=== PATIENT | female | born 1970 | race Caucasian/White ===

== ENCOUNTER → 2016-10-04 | Outpatient (REF) | payer OTHER ==
[2016-10-04 14:16] LABS: BASO % 0.6 % (0.0-1.0); EOS # 0.1 K/mm3 (0.0-0.50); EOS % 2.7 % (0.0-3.0); LARGE UNSTAINED CELL # 0.1 K/mm3 (0.0-0.4); LARGE UNSTAINED CELL % 1.4 % (0.0-4.0); LYMPH # 1.1 K/mm3 (1.5-4.5); LYMPH % 23.8 % (24.0-44.0); MEAN CORPUSCULAR HEMOGLOBIN 27.6 pg (27.0-33.0); MEAN CORPUSCULAR HGB CONC 33.6 g/dl (32.0-36.5); MEAN CORPUSCULAR VOLUME 82.1 fl (80.0-96.0); MONO # 0.2 K/mm3 (0.0-0.8); MONO % 4.3 % (0.0-5.0); NEUTROPHILS # 3.2 K/mm3 (1.8-7.7); NEUTROPHILS % 67.1 % (36.0-66.0); PLATELET COUNT, AUTOMATED 304 k/mm3 (150-450); RED CELL DISTRIBUTION WIDTH 14.3 % (11.5-14.5); WHITE BLOOD COUNT 4.8 K/mm3 (4.0-10.0)
[2016-10-04 14:43] LABS: ERYTHROCYTE SEDIMENTATION RATE 12 mm/hr (0-20)
[2016-10-04 14:50] LABS: ALBUMIN/GLOBULIN RATIO 1.29 (1.00-1.93); ALKALINE PHOSPHATASE 138 U/L (45-117); ALT/SGPT 25 U/L (12-78); ANION GAP 5 MEQ/L (8-16); AST/SGOT 17 U/L (15-37); BILIRUBIN,TOTAL 0.8 MG/DL (0.2-1.0); BLOOD UREA NITROGEN 13 MG/DL (7-18); CARBON DIOXIDE LEVEL 31 MEQ/L (21-32); CHLORIDE LEVEL 106 MEQ/L (98-107); CREATININE FOR GFR 0.81 MG/DL (0.55-1.02); GLOMERULAR FILTRATION RATE > 60.0 (>58); GLUCOSE, FASTING 82 MG/DL (70-105); SODIUM LEVEL 142 MEQ/L (136-145); TOTAL PROTEIN 7.1 GM/DL (6.4-8.2)
[2016-10-04 15:31] LABS: FOLATE 9.7 NG/ML (>5.4); VITAMIN B12 LEVEL 294 PG/ML (247-911)
== END ==
LOC: M LABNEURO 10:33
PROVIDERS: ATTEND Psychiatry & Neurology Neurology
DX: R51 Headache (principal); Z86.73 Personal history of transient ischemic attack (TIA), and cerebral infarction without residual deficits

== ENCOUNTER → 2016-10-04 | Outpatient (REF) | payer OTHER ==
[2016-10-04 14:44] LABS: ALBUMIN/GLOBULIN RATIO 1.43 (1.00-1.93); ALKALINE PHOSPHATASE 123 U/L (45-117); ALT/SGPT 23 U/L (12-78); ANION GAP 8 MEQ/L (8-16); AST/SGOT 15 U/L (15-37); BILIRUBIN,TOTAL 0.8 MG/DL (0.2-1.0); BLOOD UREA NITROGEN 13 MG/DL (7-18); CALCIUM LEVEL 8.9 MG/DL (8.5-10.1); CARBON DIOXIDE LEVEL 29 MEQ/L (21-32); CHLORIDE LEVEL 107 MEQ/L (98-107); CHOLESTEROL LEVEL 210 MG/DL (<200); CREATININE FOR GFR 0.68 MG/DL (0.55-1.02); FREE T4 1.01 NG/DL (0.76-1.46); GLOMERULAR FILTRATION RATE > 60.0 (>58); GLUCOSE, FASTING 86 MG/DL (70-105); SODIUM LEVEL 144 MEQ/L (136-145); TOTAL PROTEIN 6.8 GM/DL (6.4-8.2); TRIGLYCERIDES LEVEL 90 MG/DL (<150)
== END ==
LOC: M LABNEURO 10:30
PROVIDERS: ATTEND Nurse Practitioner Family
DX: E03.9 Hypothyroidism, unspecified (principal); I10 Essential (primary) hypertension; E78.00 Pure hypercholesterolemia, unspecified

== ENCOUNTER 2018-06-29 09:38 | Inpatient (IN) | payer OTHER ==
[~2018-06-29] VITALS: Ht 162.6 cm; Wt 102.8 kg
[2018-06-29] MEDS ORDERED: LISI10TA4 PO (10:10)
[2018-06-29] MEDS ORDERED: VITA500045 PO (10:10)
[2018-06-29] MEDS ORDERED: PRAV40TA2 PO (10:10)
[2018-06-29] MEDS ORDERED: LEVO125T4 PO (10:10)
[2018-06-29 10:32] LABS: HEMATOCRIT 43.3 % (36.0-47.0); HEMOGLOBIN 13.8 g/dl (12.0-15.5); MEAN CORPUSCULAR HEMOGLOBIN 26.6 pg (27.0-33.0); MEAN CORPUSCULAR HGB CONC 31.9 g/dl (32.0-36.5); MEAN CORPUSCULAR VOLUME 83.6 fl (80.0-96.0); PLATELET COUNT, AUTOMATED 325 10^3/uL (150-450); RED BLOOD COUNT 5.18 10^6/uL (4.00-5.40); WHITE BLOOD COUNT 6.3 10^3/uL (4.0-10.0)
[2018-06-29 10:58] LABS: AMPHETAMINES LEVEL URINE NEGATIVE (NEGATIVE); BARBITURATES URINE NEGATIVE (NEGATIVE); BENZODIAZEPINES URINE NEGATIVE (NEGATIVE); CANNABINOIDS URINE NEGATIVE (NEGATIVE); COCAINE METABOLITE URINE NEGATIVE (NEGATIVE); HCG, SERUM QUALITATIVE NEGATIVE (NEGATIVE); METHADONE URINE NEGATIVE (NEGATIVE); OPIATES URINE NEGATIVE (NEGATIVE); PHENCYCLIDINE URINE NEGATIVE (NEGATIVE)
[2018-06-29 11:09] LABS: ACETAMINOPHEN LEVEL < 2.0 UG/ML (10.0-30.0); ALBUMIN 4.1 GM/DL (3.2-5.2); ALT/SGPT 42 U/L (12-78); BILIRUBIN,DIRECT 0.2 MG/DL (0.0-0.2); BILIRUBIN,TOTAL 0.7 MG/DL (0.2-1.0); BLOOD UREA NITROGEN 15 MG/DL (7-18); CALCIUM LEVEL 9.3 MG/DL (8.5-10.1); CARBON DIOXIDE LEVEL 30 MEQ/L (21-32); CHLORIDE LEVEL 106 MEQ/L (98-107); CREATININE FOR GFR 0.79 MG/DL (0.55-1.30); ETHYL ALCOHOL (ETHANOL) < 0.003 % (0.000-0.010); GLOMERULAR FILTRATION RATE > 60.0 (>58); GLUCOSE, FASTING 111 MG/DL (70-100); POTASSIUM SERUM 4.4 MEQ/L (3.5-5.1); SALICYLATE LEVEL < 1.7 MG/DL (5.0-30.0); SODIUM LEVEL 142 MEQ/L (136-145); TOTAL PROTEIN 6.9 GM/DL (6.4-8.2)
[2018-06-29] MEDS ORDERED: MAALOX 30 ML SUSP *UDC PO PRN (13:30)
[2018-06-29] MEDS ORDERED: MOM 30ML SUSPENSION UDC PO PRN (13:30)
[2018-06-29] MEDS ORDERED: traZODone 50 MG TAB PO PRN (13:30)
[2018-06-29 16:01] LABS: FREE T4 0.86 NG/DL (0.76-1.46)
--- NOTE | 2018-06-29 16:01 | HPE ---
DATE OF ADMISSION: 06/29/2018 PRIMARY CARE PROVIDER: Loretta Zapien HISTORY OF PRESENT ILLNESS: The patient is a 48-year-old female with a past medical history significant for depression, hypertension, dyslipidemia, hypothyroidism, left eye aneurysm, migraine headaches, who was admitted to inpatient mental health unit ([facility]) for depressive symptoms. During encounter, patient was in a very depressed mood. Patient was very tearful; however, patient denies any acute complaints. Patient's medical history reviewed with the patient. PAST MEDICAL HISTORY: 1. Hypertension. 2. Depression. 3. Hypothyroidism. 4. Dyslipidemia. 5. Migraine headaches. 6. Left eye aneurysm. PAST SURGICAL HISTORY: 1. Gastric bypass in 2003. 2. Tonsillectomy. 3. Hysterectomy. ALLERGIES: SULFA (throat swelling and rash). MORPHINE (projectile vomiting and hives). Latex. SOCIAL HISTORY: Denies smoking. Drinks wine very rarely. Denied recreational drug use. REVIEW OF SYSTEMS: GENERAL: No fever. No chills. HEENT: Patient complained about mild headache from excessive crying. No vision change. No auditory changes. CARDIOVASCULAR: No chest pain. No palpitations. RESPIRATORY: Denies any shortness of breath. No cough. No sputum production. GASTROINTESTINAL: No abdominal pain. No nausea. No vomiting. No diarrhea. MUSCULOSKELETAL: Denied muscle pain or joint pain. NEUROLOGIC: Denied any numbness or tingling. PHYSICAL EXAMINATION: VITAL SIGNS: Temperature 98, pulse 80, respiratory rate 20, blood pressure 145/68, pulse oximetry 97% in room air. GENERAL: Tearful. Depressed. Alert and awake. HEENT: Normocephalic, atraumatic. Extraocular motor grossly intact. CARDIOVASCULAR: Positive S1, S2, regular rate. Positive systolic murmur, best heard in the second intercostal space. LUNGS: Clear to auscultation bilaterally. ABDOMEN: Soft, nontender. Bowel sounds present. EXTREMITIES: No edema. No sign of cyanosis. NEUROLOGIC: Sensation to fine touch grossly intact. Muscle strength 5/5. LABORATORY DATA: WBC is 6.3, hemoglobin 13.8, hematocrit 43.3, platelet count is 325. Sodium is 142, potassium 4.4, chloride 106, carbon dioxide 30, BUN 15, creatinine 0.79, GFR greater than 60, fasting glucose 111, calcium 9.3. Total bilirubin 0.7, direct bilirubin 0.2, AST 24, ALT 42, alkaline phosphatase 107, total protein 6.9, albumin 4.1, TSH is 7.07. SCG is negative. Alcohol level is negative. ASSESSMENT AND PLAN: 1. Depression. Patient is admitted to [facility]. Refer the condition management per the psychiatrist. 2. Hypothyroidism. Patient is on Synthroid. According to patient, patient had recent thyroid medication adjustment in December 2017. Patient did have elevated thyroid-stimulating hormone (TSH). Will followup with free T4. Will adjust thyroid dose as needed. 3. Hypertension, on lisinopril. 4. Dyslipidemia, on pravastatin. 5. History of migraine headache. Previously patient was taking Topamax; however, patient says she has been off the Topamax for some time. Continue to monitor. 6. Cardiac murmur. Recommend outpatient followup. 7. Left eye aneurysm. Patient has routine followup in the outpatient setting. According to patient, her aneurysm has been stable. 8. Deep vein thrombosis (DVT) prophylaxis. Recommend increased ambulation.
[2018-06-29] MEDS: ACETAMINOPHEN TAB 650MG DOSE (2X325MG) PO PRN (20:59)
[2018-06-30] MEDS: LEVOTHYROXINE 125MCG TABLET (0.125MG) PO SCH (05:49)
[2018-06-30 06:47] VITALS: BP 139/81
[2018-06-30] MEDS: ACETAMINOPHEN TAB 650MG DOSE (2X325MG) PO PRN ×2 (08:12→21:30)
[2018-06-30] MEDS: VITAMIN D 50,000 UNITS CAPSULE (ERGOCALCIFEROL 1.25MG) PO SCH (08:12)
[2018-06-30] MEDS: PRAVASTATIN 20 MG TAB PO SCH (08:12)
[2018-06-30] MEDS: LISINOPRIL 10 MG TAB PO SCH (08:12)
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
[2018-06-30] MEDS ORDERED: hydrOXYzine 10 MG TAB PO PRN (16:15)
[2018-06-30] MEDS: SERTRALINE HCL 50 MG TAB PO SCH (17:42)
[2018-06-30 18:00] VITALS: BP 131/75
[2018-06-30] MEDS: MIRTAZAPINE 15 MG TAB PO SCH ×2 (21:18→21:29)
[2018-07-01] MEDS: LEVOTHYROXINE 125MCG TABLET (0.125MG) PO SCH (06:02)
[2018-07-01 06:40] VITALS: BP 123/67
[2018-07-01] MEDS ORDERED: SERTRALINE HCL 50 MG TAB PO SCH (09:00)
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
[2018-07-01] MEDS: PRAVASTATIN 20 MG TAB PO SCH (09:31)
[2018-07-01] MEDS: LISINOPRIL 10 MG TAB PO SCH (09:31)
[2018-07-01] MEDS: SERTRALINE HCL 50 MG TAB PO SCH (09:31)
[2018-07-01 18:14] VITALS: BP 129/74
[2018-07-02] MEDS: LEVOTHYROXINE 125MCG TABLET (0.125MG) PO SCH (06:19)
[2018-07-02 06:55] VITALS: BP 136/70
[2018-07-02] MEDS: SODIUM CHLORIDE NASAL 0.65% SPRAY BTL (OCEAN) PRN ×2 (08:33→21:37)
[2018-07-02] MEDS: SERTRALINE HCL 50 MG TAB PO SCH (08:33)
[2018-07-02] MEDS: LISINOPRIL 10 MG TAB PO SCH (08:33)
[2018-07-02] MEDS: PRAVASTATIN 20 MG TAB PO SCH (08:34)
[2018-07-02] MEDS: ACETAMINOPHEN TAB 650MG DOSE (2X325MG) PO PRN (08:34)
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
[2018-07-02] MEDS ORDERED: ALBUTEROL 90 MCG/ACT 8GM HFA INHALER INH PRN (11:45)
[2018-07-02] MEDS: AUGMENTIN 875 MG TAB PO SCH ×2 (11:57→21:37)
[2018-07-02] MEDS: CETIRIZINE (ZyrTEC) 10 MG TAB PO SCH (11:58)
[2018-07-02 12:16] LABS: HEMATOCRIT 41.3 % (36.0-47.0); HEMOGLOBIN 13.1 g/dl (12.0-15.5); MEAN CORPUSCULAR HEMOGLOBIN 26.1 pg (27.0-33.0); MEAN CORPUSCULAR HGB CONC 31.7 g/dl (32.0-36.5); MEAN CORPUSCULAR VOLUME 82.4 fl (80.0-96.0); PLATELET COUNT, AUTOMATED 345 10^3/uL (150-450); RED BLOOD COUNT 5.01 10^6/uL (4.00-5.40); WHITE BLOOD COUNT 7.8 10^3/uL (4.0-10.0)
[2018-07-02 12:40] LABS: BLOOD UREA NITROGEN 16 MG/DL (7-18); CALCIUM LEVEL 8.4 MG/DL (8.5-10.1); CARBON DIOXIDE LEVEL 30 MEQ/L (21-32); CHLORIDE LEVEL 107 MEQ/L (98-107); GLOMERULAR FILTRATION RATE > 60.0 (>58); GLUCOSE, FASTING 68 MG/DL (70-100); SODIUM LEVEL 142 MEQ/L (136-145)
--- NOTE | 2018-07-02 13:13 | IPN ---
DATE: 07/02/2018 SUBJECTIVE: Patient is seen and examined in the [facility]. According to the patient, the patient started having stuffy frontal sinus and maxillary sinus in the last 2-3 weeks. The patient noted to have yellowish drainage. The patient feels that the congestion has spread down to her upper chest. The patient thinks that she may have some yellowish sputum production now. Denies any fever or chills. Patient stated she has been having significant seasonal allergy history. Usually she will have very similar symptoms approximately twice a year. Her symptoms is not controlled or treated she will develop acute bronchitis. OBJECTIVE: VITAL SIGNS: Temperature 97.8, pulse 76, respirations 14, blood pressure 136/70. GENERAL: No signs of acute distress. Patient is alert and awake. HEENT: Tenderness to palpation of the frontal and maxillary sinuses. LUNGS: Clear to auscultation bilaterally. CARDIOVASCULAR: Positive S1, S2. Regular rate. Positive systolic murmur. ABDOMEN: Soft, nontender. Bowel sounds present. EXTREMITIES: No edema. LABORATORY DATA: WBC 7.8, hemoglobin 13.1, hematocrit 41.3, platelet count 345. ASSESSMENT/PLAN: 1. Acute sinusitis. Patient was started on Augmentin, a six day course. The patient will have as needed inhaler if she starts having increased difficulty breathing. Patient started on Zyrtec. 2. Hypertension. Blood pressure is in satisfactory range. Patient is on lisinopril. 3. Hypothyroidism, on Synthroid. 4. Depression. Patient is in the [facility], defer psychiatric management to the psychiatric team. 5. Migraines headaches, on Tylenol. 6. History of left eye aneurysm. Continue outpatient follow-up. 7. Cardiac murmur. Recommend outpatient follow-up. 8. Dyslipidemia, on pravastatin. 9. Deep vein thrombosis (DVT) prophylaxis. Encourage ambulation. MTDD
[2018-07-02] MEDS: BENZONATATE 100 MG CAP PO SCH ×2 (17:11→21:37)
[2018-07-02 17:29] VITALS: BP 142/89
[2018-07-02] MEDS: MIRTAZAPINE 15 MG TAB PO SCH (21:37)
[2018-07-03] MEDS: LEVOTHYROXINE 125MCG TABLET (0.125MG) PO SCH (06:41)
[2018-07-03] MEDS: BENZONATATE 100 MG CAP PO SCH ×3 (06:41→21:04)
[2018-07-03 06:53] VITALS: BP 112/63
[2018-07-03] MEDS: SERTRALINE HCL 50 MG TAB PO SCH (08:59)
[2018-07-03] MEDS: AUGMENTIN 875 MG TAB PO SCH ×2 (08:59→21:04)
[2018-07-03] MEDS: LISINOPRIL 10 MG TAB PO SCH (08:59)
[2018-07-03] MEDS: CETIRIZINE (ZyrTEC) 10 MG TAB PO SCH (08:59)
[2018-07-03] MEDS: PRAVASTATIN 20 MG TAB PO SCH (08:59)
[2018-07-03] MEDS: SODIUM CHLORIDE NASAL 0.65% SPRAY BTL (OCEAN) PRN ×2 (13:12→21:04)
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
[2018-07-03] MEDS ORDERED: SERTRALINE HCL 25 MG TABLET PO ONE (14:30)
[2018-07-03 18:00] VITALS: BP 142/80
[2018-07-03] MEDS ORDERED: clonazePAM 1 MG TAB PO SCH (21:00)
[2018-07-03] MEDS ORDERED: QUEtiapine FUMARATE 50 MG TAB PO SCH (21:00)
[2018-07-04] MEDS: LEVOTHYROXINE 125MCG TABLET (0.125MG) PO SCH (06:08)
[2018-07-04] MEDS: SODIUM CHLORIDE NASAL 0.65% SPRAY BTL (OCEAN) PRN ×4 (06:08→21:10)
[2018-07-04] MEDS: BENZONATATE 100 MG CAP PO SCH ×3 (06:08→21:10)
[2018-07-04 06:40] VITALS: BP 132/67
[2018-07-04] MEDS: AUGMENTIN 875 MG TAB PO SCH ×2 (09:06→21:10)
[2018-07-04] MEDS: PRAVASTATIN 20 MG TAB PO SCH (09:09)
[2018-07-04] MEDS: LISINOPRIL 10 MG TAB PO SCH (09:09)
[2018-07-04] MEDS: CETIRIZINE (ZyrTEC) 10 MG TAB PO SCH (09:09)
[2018-07-04] MEDS: VITAMIN D 50,000 UNITS CAPSULE (ERGOCALCIFEROL 1.25MG) PO SCH (09:09)
[2018-07-04] MEDS: SERTRALINE HCL 25 MG TABLET PO SCH (09:09)
[2018-07-04 18:00] VITALS: BP 140/88
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
[2018-07-04] MEDS ORDERED: clonazePAM 1 MG TAB PO PRN (20:00)
[2018-07-04] MEDS: QUEtiapine FUMARATE 25 MG TAB PO SCH (21:10)
[2018-07-05] MEDS: BENZONATATE 100 MG CAP PO SCH ×3 (05:32→22:06)
[2018-07-05] MEDS: LEVOTHYROXINE 125MCG TABLET (0.125MG) PO SCH (05:32)
[2018-07-05 07:04] VITALS: BP 114/66
[2018-07-05] MEDS: AUGMENTIN 875 MG TAB PO SCH ×2 (08:58→22:06)
[2018-07-05] MEDS: CETIRIZINE (ZyrTEC) 10 MG TAB PO SCH (08:58)
[2018-07-05] MEDS: SODIUM CHLORIDE NASAL 0.65% SPRAY BTL (OCEAN) PRN ×2 (08:58→11:56)
[2018-07-05] MEDS: LISINOPRIL 10 MG TAB PO SCH (08:58)
[2018-07-05] MEDS: PRAVASTATIN 20 MG TAB PO SCH (08:58)
[2018-07-05] MEDS: SERTRALINE HCL 25 MG TABLET PO SCH (08:58)
[2018-07-05 18:00] VITALS: BP 120/83
[2018-07-05] MEDS: QUEtiapine FUMARATE 25 MG TAB PO SCH (22:06)
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
[2018-07-06 06:26] VITALS: BP 124/69
[2018-07-06] MEDS: BENZONATATE 100 MG CAP PO SCH (06:36)
[2018-07-06] MEDS: LEVOTHYROXINE 125MCG TABLET (0.125MG) PO SCH (06:36)
[2018-07-06] MEDS: AUGMENTIN 875 MG TAB PO SCH (09:23)
[2018-07-06] MEDS: PRAVASTATIN 20 MG TAB PO SCH (09:23)
[2018-07-06] MEDS: CETIRIZINE (ZyrTEC) 10 MG TAB PO SCH (09:23)
[2018-07-06] MEDS: SERTRALINE HCL 25 MG TABLET PO SCH (09:23)
[2018-07-06 09:26] VITALS: BP 117/74
[2018-07-06] MEDS: SODIUM CHLORIDE NASAL 0.65% SPRAY BTL (OCEAN) PRN (09:26)
[2018-07-06] MEDS: LISINOPRIL 10 MG TAB PO SCH (09:26)
[2018-07-06] MEDS ORDERED: HYDR-643 PO (11:26)
[2018-07-06] MEDS ORDERED: SERT25TA88 PO (11:26)
[2018-07-06] MEDS ORDERED: CETI10TA PO (11:26)
[2018-07-06] MEDS ORDERED: VENTAER INH (11:26)
[2018-07-06] MEDS ORDERED: Sodium Chloride Nasal Spray (11:26)
[2018-07-06] MEDS ORDERED: LEVO125T4 PO (11:26)
[2018-07-06] MEDS ORDERED: QUET1TAB7 PO (11:26)
[2018-07-06] MEDS ORDERED: BENZ-18 PO (11:26)
[2018-07-06] MEDS ORDERED: PRAV40TA2 PO (11:26)
[2018-07-06] MEDS ORDERED: VITA500045 PO (11:26)
[2018-07-06] MEDS ORDERED: CLON1TAB8 PO (11:26)
[2018-07-06] MEDS ORDERED: AMOX875T2 PO (11:26)
[2018-07-06] MEDS ORDERED: LISI10TA4 PO (11:26)
[2018-07-10] MEDS ORDERED: VITAMIN D 50,000 UNITS CAPSULE (ERGOCALCIFEROL 1.25MG) PO SCH (09:00)
== END 2018-07-06 15:05 | disposition home or self-care (01) | DRG 881 ==
LOC: M ED 09:38 → M ED INP 13:17 → M PSY 14:20
PROVIDERS: ADMIT Psychiatry & Neurology Psychiatry; ATTEND Psychiatry & Neurology Psychiatry
DX: F32.9 Major depressive disorder, single episode, unspecified (principal); Z63.4 Disappearance and death of family member; F43.9 Reaction to severe stress, unspecified; I10 Essential (primary) hypertension; G43.909 Migraine, unspecified, not intractable, without status migrainosus; E78.5 Hyperlipidemia, unspecified; E03.9 Hypothyroidism, unspecified; Z88.2 Allergy status to sulfonamides; Z88.5 Allergy status to narcotic agent; I72.8 Aneurysm of other specified arteries; R01.1 Cardiac murmur, unspecified

== ENCOUNTER → 2018-09-28 | Outpatient (REF) | payer OTHER ==
[~2018-09-28] MED LIST: AMOX875T2 PO; BENZ-18 PO; CETI10TA PO; CLON1TAB8 PO; HYDR-643 PO; LEVO125T4 PO; LISI10TA4 PO; PRAV40TA2 PO; QUET1TAB7 PO; SERT25TA88 PO; Sodium Chloride Nasal Spray; VENTAER INH; VITA500045 PO
[2018-09-28 18:01] LABS: ALBUMIN 4.1 GM/DL (3.2-5.2); ALT/SGPT 38 U/L (12-78); BILIRUBIN,TOTAL 0.5 MG/DL (0.2-1.0); BLOOD UREA NITROGEN 15 MG/DL (7-18); CALCIUM LEVEL 9.2 MG/DL (8.5-10.1); CARBON DIOXIDE LEVEL 31 MEQ/L (21-32); CHLORIDE LEVEL 104 MEQ/L (98-107); CHOLESTEROL LEVEL 249 MG/DL (<200); CHOLESTEROL RISK RATIO 3.716 (<5); FERRITIN 35 NG/ML (8-252); GLOMERULAR FILTRATION RATE > 60.0 (>58); GLUCOSE, FASTING 104 MG/DL (70-100); HDL CHOLESTEROL 67 MG/DL (>40); IRON (FE) 42 UG/DL (50-170); LDL CHOLESTEROL 162 MG/DL (<100); MAGNESIUM LEVEL 2.2 MG/DL (1.8-2.4); NON-HDL-C 182 MG/DL; PERCENT SATURATION 11.4 % (13.2-45.0); POTASSIUM SERUM 4.3 MEQ/L (3.5-5.1); SODIUM LEVEL 141 MEQ/L (136-145); TOTAL 25(OH) VITAMIN D 70.5 NG/ML (30.0-100.0); TOTAL IRON BINDING CAPACITY 370 UG/DL (250-450); TOTAL PROTEIN 7.1 GM/DL (6.4-8.2); TRIGLYCERIDES LEVEL 99 MG/DL (<150); VITAMIN B12 LEVEL 352 PG/ML (247-911)
[2018-09-28 18:06] LABS: BASO % 0.6 % (0.0-1.0); EOS # 0.1 10^3/uL (0.0-0.50); EOS % 1.8 % (0.0-3.0); HEMATOCRIT 40.8 % (36.0-47.0); HEMOGLOBIN 13.2 g/dl (12.0-15.5); LYMPH # 1.7 10^3/uL (1.5-4.5); LYMPH % 23.2 % (24.0-44.0); MEAN CORPUSCULAR HEMOGLOBIN 26.9 pg (27.0-33.0); MEAN CORPUSCULAR HGB CONC 32.4 g/dl (32.0-36.5); MEAN CORPUSCULAR VOLUME 83.1 fl (80.0-96.0); MONO # 0.5 10^3/uL (0.0-0.8); MONO % 7.1 % (0.0-5.0); NEUTROPHILS # 4.8 10^3/uL (1.8-7.7); PLATELET COUNT, AUTOMATED 356 10^3/uL (150-450); RED BLOOD COUNT 4.91 10^6/uL (4.00-5.40); WHITE BLOOD COUNT 7.2 10^3/uL (4.0-10.0)
[2018-09-28 18:53] LABS: HEMOGLOBIN A1c 6.2 %
[2018-10-03 08:06] LABS: VITAMIN B1 LEVEL WHOLE BLOOD 104.6 nmol/L (66.5-200.0)
== END ==
LOC: M SFHCLERA 10:18
PROVIDERS: ATTEND Family Medicine
DX: I10 Essential (primary) hypertension (principal); E03.9 Hypothyroidism, unspecified; E55.9 Vitamin D deficiency, unspecified; D50.9 Iron deficiency anemia, unspecified; Z98.84 Bariatric surgery status; E78.5 Hyperlipidemia, unspecified

== ENCOUNTER → 2019-01-25 | Outpatient (REF) | payer OTHER ==
[~2019-01-25] MED LIST changes: +SERT25TA21 PO; -SERT25TA88 PO
[2019-01-25 17:42] LABS: CHOLESTEROL RISK RATIO 3.333 (<5); THYROID STIMULATING HORMONE 2.54 uIU/ML (0.358-3.740)
[2019-01-25 18:08] LABS: HEMOGLOBIN A1c 6.1 %
== END ==
LOC: M SFHCLERA 12:19
PROVIDERS: ATTEND Family Medicine
DX: E78.5 Hyperlipidemia, unspecified (principal); E03.9 Hypothyroidism, unspecified

== ENCOUNTER → 2019-12-05 | Outpatient (CLI) | payer OTHER ==
[2019-12-05 19:53] LABS: CHOLESTEROL RISK RATIO 2.925 (<5); FREE T4 1.28 NG/DL (0.76-1.46); THYROID STIMULATING HORMONE 2.06 uIU/ML (0.358-3.740)
[2019-12-05 19:58] LABS: HEMOGLOBIN A1c 5.7 %
== END ==
LOC: M WUC 15:13
PROVIDERS: ATTEND Student in an Organized Health Care Education/Training Program
DX: E78.5 Hyperlipidemia, unspecified (principal); E03.9 Hypothyroidism, unspecified; R73.02 Impaired glucose tolerance (oral)

== ENCOUNTER → 2020-05-10 | Outpatient (CLI) | payer OTHER ==
[~2020-05-10] MED LIST changes: +FERR325T81 PO; +LEVO137T2; +LISI-898; +LISI10TA22 PO; -LISI10TA4 PO; -QUET1TAB7 PO; +QUET25TA3 PO; +VITA50005; +VITATAB74 PO; +ZOLO100T PO
== END ==
LOC: M LABSMTC 09:31
PROVIDERS: ATTEND Anesthesiology
DX: Z20.822 Contact with and (suspected) exposure to COVID-19 (principal)

== ENCOUNTER 2020-05-15 08:11 | Day surgery (SDC) | payer OTHER ==
[~2020-05-15] VITALS: Ht 162.6 cm; Wt 103.0 kg
[~2020-05-15 08:11] MED LIST changes: +LIDOCAINE 2% 100MG/5ML SDV (FOR ANES.) As Ordered ONE; +NS 1,000 ML IV ONE; +propofoL 200 MG/20 ML VIAL As Ordered ONE
--- NOTE | 2020-05-15 09:58 | ROOR ---
Patient Name: Cande Aguilra Procedure Date: 05/15/2020 9:20 AM Date of : 1970 Age: 50 Room: [facility] Gender: Female Note Status: Finalized Procedure: Colonoscopy Indications: Screening for colorectal malignant neoplasm Providers: Sebastian Nam MD Referring MD: [facility], Admin. Requesting Provider: Medicines: Monitored Anesthesia Care Complications: No immediate complications. Procedure: Pre-Anesthesia Assessment: - Prior to the procedure, a History and Physical was performed, and patient medications and allergies were reviewed. The patient is competent. The risks and benefits of the procedure and the sedation options and risks were discussed with the patient. All questions were answered and informed consent was obtained. Patient identification and proposed procedure were verified by the physician, the nurse and the anesthesiologist in the procedure room. Mental Status Examination: alert and oriented. Airway Examination: normal oropharyngeal airway and neck mobility. Respiratory Examination: clear to auscultation. CV Examination: normal. Prophylactic Antibiotics: The patient does not require prophylactic antibiotics. Prior Anticoagulants: The patient has taken no previous anticoagulant or antiplatelet agents. ASA Grade Assessment: II - A patient with mild systemic disease. After reviewing the risks and benefits, the patient was deemed in satisfactory condition to undergo the procedure. The anesthesia plan was to use monitored anesthesia care (MAC). Immediately prior to administration of medications, the patient was re-assessed for adequacy to receive sedatives. The heart rate, respiratory rate, oxygen saturations, blood pressure, adequacy of pulmonary ventilation, and response to care were monitored throughout the procedure. The physical status of the patient was re-assessed after the procedure. The Colonoscope was introduced through the anus and advanced to the cecum, identified by appendiceal orifice and ileocecal valve. The colonoscopy was performed without difficulty. The patient tolerated the procedure well. The quality of the bowel preparation was good. The ileocecal valve, appendiceal orifice, and rectum were photographed. Scope insertion time was 2 minutes. Scope withdrawal time was 10 minutes. The total duration of the procedure was 14 minutes. Findings: The perianal and digital rectal examinations were normal. Two sessile polyps were found in the ascending colon. The polyps were 8 to 10 mm in size. These polyps were removed with a cold snare. Resection and retrieval were complete. Verification of patient identification for the specimen was done by the physician and nurse using the patient's name, date and medical record number. Multiple small and large-mouthed diverticula were found in the sigmoid colon. There was no evidence of diverticular bleeding. Non-bleeding external and internal hemorrhoids were found during retroflexion. The hemorrhoids were small. Impression: - Two 8 to 10 mm polyps in the ascending colon, removed with a cold snare. Resected and retrieved. - Moderate diverticulosis in the sigmoid colon. There was no evidence of diverticular bleeding. - Non-bleeding external and internal hemorrhoids. Recommendation: - Patient has a contact number available for emergencies. The signs and symptoms of potential delayed complications were discussed with the patient. Return to normal activities tomorrow. Written discharge instructions were provided to the patient. - High fiber diet. - Continue present medications. - Await pathology results. - Repeat colonoscopy in 3 - 5 years for surveillance based on pathology results. - Telephone GI clinic for pathology results in 2 weeks. - Return to primary care physician. Procedure Code(s): --- Professional --- 88405, Colonoscopy, flexible; with removal of tumor(s), polyp(s), or other lesion(s) by snare technique Diagnosis Code(s): --- Professional --- Z12.11, Encounter for screening for malignant neoplasm of colon K63.5, Polyp of colon K64.8, Other hemorrhoids K57.30, Diverticulosis of large intestine without perforation or abscess without bleeding CPT copyright 2019 [employer] [place] [employer]. All rights reserved. The codes documented in this report are preliminary and upon winchman/crane operator review may be revised to meet current compliance requirements. Sebastian Nam MD Sebastian Nam MD 05/15/2020 9:58:20 AM Electronically signed by Sebastian Nam MD Number of Addenda: 0 Note Initiated On: 05/15/2020 9:20 AM Estimated Blood Loss: Estimated blood loss was minimal.
[2020-05-15 10:10] VITALS: BP 124/69
== END 2020-05-15 10:15 | disposition home or self-care (01) ==
LOC: M OPP 08:11
PROVIDERS: ATTEND Internal Medicine Gastroenterology
DX: Z12.11 Encounter for screening for malignant neoplasm of colon (principal); K63.5 Polyp of colon; K57.30 Diverticulosis of large intestine without perforation or abscess without bleeding; K64.8 Other hemorrhoids; Z79.899 Other long term (current) drug therapy; Z88.5 Allergy status to narcotic agent; Z88.2 Allergy status to sulfonamides; Z91.040 Latex allergy status

== ENCOUNTER 2020-09-17 01:49 | Emergency (ER) | payer OTHER ==
[~2020-09-17] VITALS: Ht 162.6 cm; Wt 103.6 kg
[~2020-09-17 01:49] MED LIST changes: +ERGO500029; -LIDOCAINE 2% 100MG/5ML SDV (FOR ANES.) As Ordered ONE; -NS 1,000 ML IV ONE; -VITA50005; -propofoL 200 MG/20 ML VIAL As Ordered ONE
[2020-09-17 04:10] VITALS: BP 139/79
[2020-09-17] MEDS ORDERED: OXYCODONE/APAP 5MG/325MG(BULK FOR ED) 1 TABLET PO ONE (04:10)
--- NOTE | 2020-09-17 05:19 | REPVR ---
PROCEDURE INFORMATION: Exam: XR Left Ankle Exam date and time: 09/17/2020 2:44 AM Age: 50 years old Clinical indication: Pain; Left; Patient HX: Previous injury to ankle 4 years ago; Additional info: Rolled left ankle TECHNIQUE: Imaging protocol: XR Left ankle. Views: 3 or more views. COMPARISON: CR ANKLE COMPLETE 2014-06-02 18:40 FINDINGS: Bones/joints: Dena deformity. 9 mm anterior plantar calcaneal spur. Small medial and lateral malleolar tip avulsion small fractures. Recent appearing oblique oriented fracture through the distal fibula extending to the ankle mortise. Mild widening of the medial and lateral talar clear space suggests ligamentous instability. Soft tissues: Mild soft tissue swelling, less than expected perhaps suggesting subacute injury. IMPRESSION: Small medial and lateral malleolar tip avulsion small fractures. Recent appearing oblique oriented fracture through the distal fibula extending to the ankle mortise. Mild widening of the medial and lateral talar clear space suggests ligamentous instability. Electronically signed by: Bairon Blanco On 09/17/2020 05:18:52 AM
== END 2020-09-17 04:32 | disposition home or self-care (01) ==
LOC: M ED 01:49
DX: S82.435A Nondisplaced oblique fracture of shaft of left fibula, initial encounter for closed fracture (principal); X50.0XXA Overexertion from strenuous movement or load, initial encounter; Y92.019 Unspecified place in single-family (private) house as the place of occurrence of the external cause; Y93.9 Activity, unspecified; Y99.8 Other external cause status; I10 Essential (primary) hypertension; Z98.84 Bariatric surgery status; G43.909 Migraine, unspecified, not intractable, without status migrainosus; Z88.2 Allergy status to sulfonamides; Z88.6 Allergy status to analgesic agent; Z91.040 Latex allergy status; Z79.899 Other long term (current) drug therapy

== ENCOUNTER → 2020-09-18 | Outpatient (CLI) | payer OTHER ==
--- NOTE | 2020-09-18 11:59 | REP ---
INDICATION: NONDISP FX OF LATERAL MALLEOLUS OF LEFT FIBULA, INIT. COMPARISON: Comparison left ankle radiographs are from the previous day 17 September 2020.. TECHNIQUE: Five views of the left ankle are obtained. FINDINGS: Five views of the left ankle including "gravity stress" view demonstrate an obliquely oriented fracture through the distal fibular metaphysis. On the AP view there is mild medial of widening of the ankle mortise as before. There is a bone fragment adjacent the medial malleolar tip consistent with a chip fracture. Large plantar and Achilles calcaneal spurs are noted. Soft tissue swelling is noted. IMPRESSION: No change from the previous day's radiograph. Oblique fracture distal fibula. Medial malleolar chip fracture. Soft tissue swelling. Mild medial ankle mortise widening. <Electronically signed by Misha Yang > 09/18/20 [id number]
== END ==
LOC: M SOG 11:06
PROVIDERS: ATTEND Orthopaedic Surgery Sports Medicine
DX: S82.65XA Nondisplaced fracture of lateral malleolus of left fibula, initial encounter for closed fracture (principal); X58.XXXA Exposure to other specified factors, initial encounter; Y92.89 Other specified places as the place of occurrence of the external cause; Y93.9 Activity, unspecified; Y99.9 Unspecified external cause status

== ENCOUNTER → 2020-09-29 | Outpatient (CLI) | payer OTHER ==
[~2020-09-29] MED LIST changes: -LISI-898; +LISI5TAB11; +QUET1TAB17 PO; -QUET25TA3 PO; +VITA-243 PO
== END ==
LOC: M SOG 09:32
PROVIDERS: ATTEND Orthopaedic Surgery Sports Medicine
DX: S82.65XD Nondisplaced fracture of lateral malleolus of left fibula, subsequent encounter for closed fracture with routine healing (principal)

== ENCOUNTER → 2020-10-10 | Outpatient (CLI) | payer OTHER ==
[~2020-10-10] MED LIST changes: +LISI-898; -LISI5TAB11; -VITA-243 PO
--- NOTE | 2020-10-10 15:48 | REP ---
INDICATION: ANKLE FX. COMPARISON: 09/17/2020 TECHNIQUE: AP, lateral, oblique views of the left ankle FINDINGS: Lateral view best demonstrates oblique nondisplaced fracture of the distal fibula similar to prior examination. Further evaluation is limited due to overlying cast material. IMPRESSION: Oblique nondisplaced fracture of the distal fibula again noted. <Electronically signed by Joe Forrester > 10/10/20 [id number]
== END ==
LOC: M SOG 15:20
PROVIDERS: ATTEND Orthopaedic Surgery Sports Medicine
DX: S82.65XD Nondisplaced fracture of lateral malleolus of left fibula, subsequent encounter for closed fracture with routine healing (principal); X58.XXXD Exposure to other specified factors, subsequent encounter

== ENCOUNTER → 2020-10-31 | Outpatient (CLI) | payer OTHER ==
--- NOTE | 2020-10-31 12:17 | REP ---
INDICATION: LT LAT MALLEOLUS FX. COMPARISON: 10/10/[address] TECHNIQUE: Three views without cast FINDINGS: Tiny flake like ossific densities are again seen distal to the medial malleolus and essentially unchanged from the non casted examination of 09/18/2020. the mortise is intact and unchanged. The margins of the previously described distal fibular fracture indistinct consistent with callus formation and healing. There is some persistent soft tissue swelling. Note is again made of large plantar and retrocalcaneal heel spurs. IMPRESSION: Chronic changes and healing fracture as described above. <Electronically signed by Yomi Aguilar > 10/31/20 [id number]
== END ==
LOC: M SOG 11:39
PROVIDERS: ATTEND Orthopaedic Surgery Sports Medicine
DX: S82.65XD Nondisplaced fracture of lateral malleolus of left fibula, subsequent encounter for closed fracture with routine healing (principal)

== ENCOUNTER → 2020-12-05 | Outpatient (CLI) | payer OTHER ==
[2020-12-05 16:50] LABS: ALBUMIN 3.6 GM/DL (3.2-5.2); ALT/SGPT 22 U/L (12-78); BILIRUBIN,TOTAL 0.5 MG/DL (0.2-1.0); BLOOD UREA NITROGEN 11 MG/DL (7-18); CALCIUM LEVEL 8.4 MG/DL (8.5-10.1); CARBON DIOXIDE LEVEL 30 MEQ/L (21-32); CHLORIDE LEVEL 105 MEQ/L (98-107); CREATININE FOR GFR 0.88 MG/DL (0.55-1.30); FREE T4 1.23 NG/DL (0.76-1.46); GLOMERULAR FILTRATION RATE > 60.0 (>51); GLUCOSE, FASTING 111 MG/DL (70-100); POTASSIUM SERUM 4.5 MEQ/L (3.5-5.1); SODIUM LEVEL 140 MEQ/L (136-145); TOTAL 25(OH) VITAMIN D 57.2 NG/ML (30.0-100.0); TOTAL PROTEIN 6.7 GM/DL (6.4-8.2)
== END ==
LOC: M WUC 12:07
PROVIDERS: ATTEND Student in an Organized Health Care Education/Training Program
DX: E55.9 Vitamin D deficiency, unspecified (principal); I10 Essential (primary) hypertension; E03.9 Hypothyroidism, unspecified

== ENCOUNTER 2021-02-18 17:39 | Emergency (ER) | payer OTHER ==
[~2021-02-18] VITALS: Ht 162.6 cm; Wt 103.6 kg
[2021-02-18] MEDS: HYDROMORPHONE HCL 0.5 MG/ 0.5 ML SYRINGE (J1170 PER 1) IV ONE ×2 (21:00→21:41)
[2021-02-18] MEDS ORDERED: ONDANSETRON 4MG/2ML VIAL IV ONE (21:00)
--- NOTE | 2021-02-18 21:59 | REPVR ---
PROCEDURE INFORMATION: Exam: CT Abdomen And Pelvis Without Contrast Exam date and time: 02/18/2021 9:09 PM Age: 50 years old Clinical indication: Other: Acute severe abdominal pain n/v TECHNIQUE: Imaging protocol: Computed tomography of the abdomen and pelvis without contrast. Radiation optimization: All CT scans at this facility use at least one of these dose optimization techniques: automated exposure control; mA and/or kV adjustment per patient size (includes targeted exams where dose is matched to clinical indication); or iterative reconstruction. COMPARISON: No relevant prior studies available. FINDINGS: Liver: Normal. No mass. Gallbladder and bile ducts: Hydropic gallbladder without evidence of wall thickening or calculi. Pancreas: Normal. No ductal dilation. Spleen: Normal. No splenomegaly. Adrenal glands: Normal. No mass. Kidneys and ureters: Normal. No hydronephrosis. Stomach and bowel: This patient is status post gastric bypass surgery. Appendix: No evidence of appendicitis. Intraperitoneal space: Unremarkable. No free air. No significant fluid collection. Vasculature: The aortoiliac vessels demonstrate mild atherosclerotic calcification. Lymph nodes: Unremarkable. No enlarged lymph nodes. Urinary bladder: Unremarkable as visualized. Reproductive: There has been a hysterectomy. Bones/joints: Moderate central spinal stenosis L3-L4 and L4-L5. Soft tissues: There is a small left para inguinal hernia. There is no bowel within the hernia. There is no evidence of incarceration. IMPRESSION: 1. Hydropic gallbladder without evidence of wall thickening or calculi. Further evaluation with gallbladder ultrasound may be indicated in the appropriate clinical setting. 2. This patient is status post gastric bypass surgery. 3. There has been a hysterectomy. Electronically signed by: Selwyn Dietrich On 02/18/2021 21:58:55 PM
[2021-02-18 22:08] LABS: BASO % 0.5 % (0.0-1.0); EOS # 0.1 10^3/uL (0.0-0.5); EOS % 1.1 % (0.0-3.0); HEMATOCRIT 38.7 % (36.0-47.0); HEMOGLOBIN 12.3 g/dl (12.0-15.5); LYMPH # 2.1 10^3/uL (1.5-5.0); LYMPH % 24.8 % (24.0-44.0); MEAN CORPUSCULAR HEMOGLOBIN 26.2 pg (27.0-33.0); MEAN CORPUSCULAR HGB CONC 31.8 g/dl (32.0-36.5); MEAN CORPUSCULAR VOLUME 82.3 fl (80.0-96.0); MONO # 0.6 10^3/uL (0.0-0.8); MONO % 6.7 % (2.0-8.0); NEUTROPHILS # 5.6 10^3/uL (1.5-8.5); NEUTROPHILS % 66.7 % (36.0-66.0); PLATELET COUNT, AUTOMATED 331 10^3/uL (150-450); WHITE BLOOD COUNT 8.3 10^3/uL (4.0-10.0)
[2021-02-18 22:51] LABS: ALBUMIN 3.8 GM/DL (3.2-5.2); ALT/SGPT 33 U/L (12-78); BILIRUBIN,TOTAL 0.3 MG/DL (0.2-1.0); BLOOD UREA NITROGEN 17 MG/DL (7-18); CALCIUM LEVEL 8.9 MG/DL (8.5-10.1); CARBON DIOXIDE LEVEL 29 MEQ/L (21-32); CHLORIDE LEVEL 103 MEQ/L (98-107); CREATININE FOR GFR 0.74 MG/DL (0.55-1.30); GLOMERULAR FILTRATION RATE > 60.0 (>51); GLUCOSE, FASTING 101 MG/DL (70-100); LIPASE 109 U/L (73-393); POTASSIUM SERUM 4.2 MEQ/L (3.5-5.1); SODIUM LEVEL 140 MEQ/L (136-145); TOTAL PROTEIN 6.6 GM/DL (6.4-8.2)
[2021-02-18 23:13] VITALS: BP 124/59
--- NOTE | 2021-02-19 07:17 | ED PDOC ---
Post-Departure Follow-Up ct abd/p faxed to dr staples for fu Dinesh Mcpherson MD Feb 19, 2021 07:17
== END 2021-02-18 23:25 | disposition home or self-care (01) ==
LOC: M ED 17:39
DX: K42.9 Umbilical hernia without obstruction or gangrene (principal); R10.9 Unspecified abdominal pain; I10 Essential (primary) hypertension; E78.5 Hyperlipidemia, unspecified
CPT/HCPCS: 74176; 80053; 83605; 83690; 85025; 87040; 96374; 96375; 99283; J1170; J2405

== ENCOUNTER → 2021-03-19 | Outpatient (CLI) | payer OTHER ==
[~2021-03-19] MED LIST changes: -LISI-898; +LISI5TAB11; +VITA-243 PO
== END ==
LOC: M EKG 09:42
PROVIDERS: ATTEND Surgery
DX: I10 Essential (primary) hypertension (principal)

== ENCOUNTER → 2021-03-19 | Outpatient (CLI) | payer OTHER | LOC: M LABSMTC 09:32 | PROVIDERS: ATTEND Anesthesiology | DX: Z01.818 Encounter for other preprocedural examination (principal); Z11.52 Encounter for screening for COVID-19 ==

== ENCOUNTER 2021-03-24 10:31 | Day surgery (SDC) | payer OTHER ==
[~2021-03-24] VITALS: Ht 162.6 cm; Wt 105.1 kg
[~2021-03-24 10:31] MED LIST changes: +LIDOCAINE 2% 100MG/5ML SDV (FOR ANES.) As Ordered ONE; +LR 1,000 ML IV ONE; +MIDAZOLAM INJ 2MG/2ML VIAL (J2250 PER 1MG) As Ordered ONE; +ONDANSETRON 4MG/2ML VIAL As Ordered ONE; +ROCURONIUM BROMIDE 50 MG/5 ML VIAL As Ordered ONE; +ceFAZolin SOD 2 GM in IV 1 EA IV ONE; +dexameTHASONE 4 MG/ML 1ML VIAL (J1100 PER 1MG) As Ordered ONE; +fentaNYL 100 MCG/2 ML INJECTION As Ordered ONE; +propofoL 200 MG/20 ML VIAL As Ordered ONE
[2021-03-24] MEDS ORDERED: BUPIVACAINE/EPIN 0.5% 30 ML VIAL As Ordered ONE (10:53)
[2021-03-24] MEDS ORDERED: BUPIVACAINE LIPOSOME/PF 1.3% 20ML VIAL (13.3MG/ML)(EXPAREL)(C9290 PER1MG) As Ordered ONE (10:53)
[2021-03-24] MEDS ORDERED: BUPIVACAINE HCL 0.25% 30ML VIAL As Ordered ONE (10:53)
[2021-03-24] MEDS ORDERED: SCOPOLAMINE 1MG TRANSDERMAL PATCH TOP ONE (11:10)
[2021-03-24] MEDS ORDERED: HYDROmorphone HCL 2MG/ML 1ML VIAL As Ordered ONE (11:29)
[2021-03-24] MEDS ORDERED: ACETAMINOPHEN 1000MG 100ML IV BTL (OFIRMEV) (J0131 PER 10MG) As Ordered ONE (11:33)
[2021-03-24] MEDS ORDERED: SUGAMMADEX SODIUM 500 MG/5 ML VIAL (BRIDION) As Ordered ONE (11:33)
[2021-03-24] MEDS ORDERED: KETOROLAC 60MG 2ML VIAL As Ordered ONE (11:33)
[2021-03-24] MEDS ORDERED: KETAMINE HCL 200 MG/20 ML VIAL As Ordered ONE (12:05)
[2021-03-24] MEDS ORDERED: ESMOLOL INJ 100MG/10ML VIAL As Ordered ONE (13:06)
[2021-03-24] MEDS ORDERED: fentaNYL 100 MCG/2 ML INJECTION IV PRN (13:30)
[2021-03-24] MEDS ORDERED: NS 1,000 ML IV SCH (13:30)
[2021-03-24] MEDS ORDERED: LR 1,000 ML IV SCH (13:30)
[2021-03-24] MEDS ORDERED: HYDROMORPHONE HCL 0.5 MG/ 0.5 ML SYRINGE (J1170 PER 1) IV PRN (13:30)
[2021-03-24] MEDS ORDERED: ONDANSETRON 4MG/2ML VIAL IV PRN (13:30)
[2021-03-24] MEDS: oxyCODONE 5MG TAB PO PRN ×2 (14:19→15:12)
[2021-03-24 16:30] VITALS: BP 112/64
== END 2021-03-24 16:32 | disposition home or self-care (01) ==
LOC: M SDC 10:31
PROVIDERS: ATTEND Surgery
DX: K43.2 Incisional hernia without obstruction or gangrene (principal); I10 Essential (primary) hypertension; E78.00 Pure hypercholesterolemia, unspecified; E03.9 Hypothyroidism, unspecified; K21.9 Gastro-esophageal reflux disease without esophagitis; Z86.718 Personal history of other venous thrombosis and embolism; H57.9 Unspecified disorder of eye and adnexa; F41.9 Anxiety disorder, unspecified; F32.9 Major depressive disorder, single episode, unspecified; Z98.84 Bariatric surgery status; Z91.040 Latex allergy status; Z88.5 Allergy status to narcotic agent; Z88.2 Allergy status to sulfonamides; Z79.899 Other long term (current) drug therapy
CPT/HCPCS: 49656; C1781; C9290; J0131; J0690; J1100; J1170; J1885; J2250; J2405; J3010; S2900

== ENCOUNTER → 2023-05-27 | Outpatient (CLI) | payer OTHER ==
[~2023-05-27] MED LIST changes: -LIDOCAINE 2% 100MG/5ML SDV (FOR ANES.) As Ordered ONE; -LR 1,000 ML IV ONE; -MIDAZOLAM INJ 2MG/2ML VIAL (J2250 PER 1MG) As Ordered ONE; -ONDANSETRON 4MG/2ML VIAL As Ordered ONE; -ROCURONIUM BROMIDE 50 MG/5 ML VIAL As Ordered ONE; -ceFAZolin SOD 2 GM in IV 1 EA IV ONE; -dexameTHASONE 4 MG/ML 1ML VIAL (J1100 PER 1MG) As Ordered ONE; -fentaNYL 100 MCG/2 ML INJECTION As Ordered ONE; -propofoL 200 MG/20 ML VIAL As Ordered ONE
== END ==
LOC: M SLEEP HO 12:12
PROVIDERS: ATTEND Physician Assistant
DX: R53.83 Other fatigue (principal); R06.00 Dyspnea, unspecified; I10 Essential (primary) hypertension; E66.9 Obesity, unspecified; R45.1 Restlessness and agitation

== ENCOUNTER → 2024-12-26 | Day surgery (SDC) | payer OTHER ==
[~2024-12-26] VITALS: Ht 162.6 cm; Wt 93.0 kg
[~2024-12-26] MED LIST changes: +ACETAMINOPHEN 1000MG/100ML IV BAG As Ordered ONE; +HYDROMORPHONE HCL 0.5 MG/0.5 ML SYRINGE IV PRN; +KETOROLAC 30 MG/ML 1 ML VIAL As Ordered ONE; +LIDOCAINE 2% 100 MG/5 ML SDV (FOR ANES.) As Ordered ONE; +LR 1,000 ML IV SCH; +MIDAZOLAM INJ 2 MG/2 ML VIAL As Ordered ONE; +MYRB50TA PO; +ONDANSETRON 4MG/2ML VIAL As Ordered ONE; -PRAV40TA2 PO; +PRAV40TA85 PO; +SEMA0.5P SQ; +VESI10TA2 PO; +dexAMETHasone 4 MG/ML 1 ML VIAL As Ordered ONE
[2024-12-26] MEDS: LIDOCAINE 1% SDV 30 ML VIAL As Ordered ONE (11:11)
[2024-12-26] MEDS: ceFAZolin SOD 2 GM IV ONCE IV ONE (11:12)
[2024-12-26 12:45] VITALS: TEMP 97.6
[2024-12-26 12:50] VITALS: BP 130/69; O2SAT 100
== END | disposition home or self-care (01) ==
LOC: M SDC 08:23
PROVIDERS: ATTEND Podiatrist Foot & Ankle Surgery
DX: M20.12 Hallux valgus (acquired), left foot (principal); M21.612 Bunion of left foot; M20.42 Other hammer toe(s) (acquired), left foot; I10 Essential (primary) hypertension; E03.9 Hypothyroidism, unspecified; I72.8 Aneurysm of other specified arteries; G47.33 Obstructive sleep apnea (adult) (pediatric); E78.00 Pure hypercholesterolemia, unspecified; D64.9 Anemia, unspecified; Z86.718 Personal history of other venous thrombosis and embolism; R32 Unspecified urinary incontinence; Z79.899 Other long term (current) drug therapy; Z79.890 Hormone replacement therapy; Z88.5 Allergy status to narcotic agent; Z88.2 Allergy status to sulfonamides; Z91.040 Latex allergy status; Z90.710 Acquired absence of both cervix and uterus; Z98.84 Bariatric surgery status
CPT/HCPCS: 28285; 28297; 28310; 76000; 88300; C1713; J0131; J0665; J0688; J1100; J1885; J2250; J2405; J3010